=== PATIENT | female | born 1940 | race African-American/Black ===

== ENCOUNTER 2018-07-21 12:07 | Outpatient (CLI) | payer MEDICARE ==
--- NOTE | 2018-07-22 05:26 | Diagnostic Imaging Report ---
HUSEYIN MELGOZA [facility] [id number] [facility] [address] [place], [place]. [address] Report Submission Date: Jul 21, 2018 6:28:09 PM CDT Patient Study Name: JESE STRATTON Date: Jul 21, 2018 12:19:59 PM CDT Modality Type: DX Gender: F Description: SHOULDER 2 VIEWS OR MORE : 36 Institution: [facility] Physician: HUSEYIN MELGOZA HISTORY: 78-year-old female with right shoulder pain for the past 3 weeks, no known injury. COMPARISON: None available. TECHNIQUE: 3 views of the right shoulder were performed. IMPRESSION: 1. Osteopenia without evidence of acute fracture of the right shoulder. 2. The humeral head is high-riding on one of the AP views and is subluxed inferiorly on the other AP view. The films are not labeled as to which of these films as internal and external rotation. Loss of subacromial space is consistent with significant rotator cuff tendinopathy. 3. Acromioclavicular hypertrophy with faceting of the undersurfaces of the distal clavicle and acromion due to articulation with the humeral head. There are also glenohumeral degenerative changes. 4. Postoperative changes of the cervical spine. 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 Electronically signed on Jul 21, 2018 6:28:09 PM CDT by: Duy LEMA
== END 2018-07-21 12:09 ==
LOC: RAD 12:07
PROVIDERS: ATTEND Family Medicine
DX: M85.811 Other specified disorders of bone density and structure, right shoulder (principal); S43.031A Inferior subluxation of right humerus, initial encounter; M51.34 Other intervertebral disc degeneration, thoracic region; M25.511 Pain in right shoulder; X58.XXXA Exposure to other specified factors, initial encounter; Y93.9 Activity, unspecified; Y92.9 Unspecified place or not applicable
CPT/HCPCS: 73030